=== PATIENT | female | born 1950 | race Caucasian/White ===

== ENCOUNTER 2021-05-23 21:34 | Emergency (ER) | payer MEDICARE, OTHER ==
[~2021-05-23] VITALS: Ht 160 cm; Wt 58.1 kg
[2021-05-23] MEDS ORDERED: NORVASC10 MG PO (21:48)
[2021-05-23] MEDS ORDERED: ASA81BEC PO (21:48)
[2021-05-23] MEDS ORDERED: TOPROL XL25 MG PO (21:49)
[2021-05-23] MEDS ORDERED: VELPHORO500 MG PO (21:49)
[2021-05-23] MEDS ORDERED: CRESTOR20 MG PO (21:49)
[2021-05-23] MEDS ORDERED: HYDRALAZINE 2525 MG PO (21:49)
[2021-05-23] MEDS ORDERED: SINGULAIR 10 MG10 MG PO (21:50)
[2021-05-23] MEDS ORDERED: PROTONIX40 M2 PO (21:50)
[2021-05-23] MEDS ORDERED: SYNTHROID175 MC1 PO (21:50)
[2021-05-23] MEDS ORDERED: ZETIA10 MG PO (21:50)
[2021-05-23] MEDS ORDERED: RENAPLEX TABLE1 EACH PO (21:50)
[2021-05-23] MEDS ORDERED: CETIRIZINE HCL5 MG PO (21:50)
[2021-05-23] MEDS ORDERED: TUMS ULTRA400 MG PO (21:51)
[2021-05-23] MEDS ORDERED: HYDROCODON-ACE1 EAC7 PO (23:48)
[2021-05-24 00:06] VITALS: BP 135/78
== END 2021-05-24 00:06 | disposition home or self-care (01) ==
LOC: M.ERS 21:34
DX: S01.111A Laceration without foreign body of right eyelid and periocular area, initial encounter (principal); S01.01XA Laceration without foreign body of scalp, initial encounter; S50.12XA Contusion of left forearm, initial encounter; M54.2 Cervicalgia; Z79.82 Long term (current) use of aspirin; Z99.2 Dependence on renal dialysis; Z90.89 Acquired absence of other organs; Z90.710 Acquired absence of both cervix and uterus; Z85.850 Personal history of malignant neoplasm of thyroid; Z79.899 Other long term (current) drug therapy; Z88.8 Allergy status to other drugs, medicaments and biological substances; W22.8XXA Striking against or struck by other objects, initial encounter; Y93.89 Activity, other specified; Y92.090 Kitchen in other non-institutional residence as the place of occurrence of the external cause; Y99.8 Other external cause status

== ENCOUNTER 2021-06-03 11:53 | Emergency (ER) | payer MEDICARE, OTHER ==
[~2021-06-03] VITALS: Ht 160 cm; Wt 59.0 kg
[~2021-06-03 11:53] MED LIST: ASA81BEC PO; CETIRIZINE HCL5 MG PO; CRESTOR20 MG PO; HYDRALAZINE 2525 MG PO; HYDROCODON-ACE1 EAC7 PO; NORVASC10 MG PO; PROTONIX40 M2 PO; RENAPLEX TABLE1 EACH PO; SINGULAIR 10 MG10 MG PO; SYNTHROID175 MC1 PO; TOPROL XL25 MG PO; TUMS ULTRA400 MG PO; VELPHORO500 MG PO; ZETIA10 MG PO
[2021-06-03 11:59] VITALS: BP 125/54
== END 2021-06-03 12:54 | disposition left against medical advice (07) ==
LOC: M.ERS 11:53
DX: R42 Dizziness and giddiness (principal); Z53.21 Procedure and treatment not carried out due to patient leaving prior to being seen by health care provider